=== PATIENT | male | born 1955 | race Caucasian/White ===

== ENCOUNTER → 2020-04-13 | Outpatient (CLI) | payer MEDICARE ==
[~2020-04-13] MED LIST: BRILINTA90 M1 PO; CEPHALEXIN500 M1 PO
== END | disposition home or self-care (01) ==
LOC: RAD 09:44
DX: M25.562 Pain in left knee (principal)

== ENCOUNTER → 2023-02-12 | Outpatient (CLI) | payer MEDICARE | END | disposition home or self-care (01) | LOC: RAD 11:12 | PROVIDERS: ATTEND Family Medicine | DX: M79.671 Pain in right foot (principal) ==

== ENCOUNTER → 2023-04-18 | Outpatient (CLI) | payer MEDICARE | END | disposition home or self-care (01) | LOC: MRI 08:49 | PROVIDERS: ATTEND Family Medicine | DX: M67.471 Ganglion, right ankle and foot (principal) ==